=== PATIENT | female | born 1945 | race Caucasian/White ===

== ENCOUNTER → 2016-11-04 | Outpatient (CLI) | payer OTHER, MEDICARE | LOC: FIMAGING 10:03 | PROVIDERS: ATTEND Family Medicine | DX: Z13.820 Encounter for screening for osteoporosis (principal); M85.80 Other specified disorders of bone density and structure, unspecified site; Z82.62 Family history of osteoporosis; Z78.0 Asymptomatic menopausal state ==

== ENCOUNTER → 2017-09-12 | Outpatient (CLI) | payer OTHER, MEDICARE | LOC: FIMAGING 14:06 | PROVIDERS: ATTEND Family Medicine | DX: Z12.31 Encounter for screening mammogram for malignant neoplasm of breast (principal) ==

== ENCOUNTER → 2018-10-12 | Outpatient (CLI) | payer OTHER, MEDICARE | LOC: FIMAGING 14:23 | PROVIDERS: ATTEND Internal Medicine | DX: Z12.31 Encounter for screening mammogram for malignant neoplasm of breast (principal) ==

== ENCOUNTER → 2018-11-30 | Outpatient (CLI) | payer OTHER, MEDICARE | LOC: FIMAGING 09:29 | PROVIDERS: ATTEND Internal Medicine | DX: M89.9 Disorder of bone, unspecified (principal); M81.0 Age-related osteoporosis without current pathological fracture ==